=== PATIENT | male | born 1975 | race Caucasian/White ===

== ENCOUNTER 2018-10-06 13:38 | Emergency (ER) | payer MEDICAID, OTHER ==
[~2018-10-06] VITALS: Ht 180.3 cm; Wt 120.7 kg
[2018-10-06 15:10] VITALS: BP 132/72
== END 2018-10-06 16:25 | disposition home or self-care (01) ==
LOC: ER 13:43
DX: R21 Rash and other nonspecific skin eruption (principal)

== ENCOUNTER 2018-10-26 08:55 | Emergency (ER) | payer MEDICAID ==
[2018-10-26 09:43] VITALS: BP 152/99
== END 2018-10-26 09:52 | disposition home or self-care (01) ==
LOC: ER 08:55
DX: J02.9 Acute pharyngitis, unspecified (principal); I10 Essential (primary) hypertension; Z90.49 Acquired absence of other specified parts of digestive tract

== ENCOUNTER 2021-07-06 02:10 | Inpatient (IN) | payer MEDICARE, MEDICAID ==
[~2021-07-06] VITALS: Ht 180.3 cm; Wt 136.5 kg
[2021-07-06 02:37] LABS: Basophils # (auto) 0.1 10 ^3/uL (0-0.2); Basophils % (auto) 0.5 % (0.0-2.0); Eosinophils # (auto) 0.3 10 ^3/uL (0-0.8); Hematocrit 42.1 % (41.0-53.0); Hemoglobin 14.3 g/dL (13.5-17.5); Lymphocytes # (auto) 1.3 10 ^3/uL (0.4-5.4); Mean Corpuscular Hemoglobin 30.9 pg (28.0-32.0); Mean Corpuscular Hgb Conc. 33.9 g/dL (32.0-36.0); Mean Corpuscular Volume 91.1 fL (80.0-100.0); Monocytes # (auto) 0.9 10 ^3/uL (0-1.3); Monocytes % (auto) 6.3 % (0.0-12.0); Neutrophils # (auto) 12.3 10 ^3/uL (1.6-8.6); Neutrophils % (auto) 82.2 % (37.0-80.0); Red Blood Cells 4.62 10^6/uL (4.5-5.90); Red Cell Distribution Width 14.9 % (11.8-14.3); White Blood Cell 14.9 10^3/uL (4.4-10.8)
[2021-07-06 02:55] LABS: Albumin 2.8 g/dL (3.4-5.0); BUN/Creatinine Ratio 10.5; Calcium 8.1 mg/dL (8.5-10.1); Potassium 3.8 mmol/L (3.5-5.1)
[2021-07-06 02:56] LABS: Lactic Acid w/Reflex 2.9 mmol/L (0.4-2.0)
[2021-07-06 02:58] LABS: Bilirubin, Total 0.6 mg/dL (0.2-1.0); Total Protein 7.5 g/dL (6.4-8.2)
[2021-07-06] MEDS ORDERED: cefTRIAXone 1GM/50ML D5W 50 ML IV ONE (07:00)
[2021-07-06] MEDS ORDERED: CLINDAMYCIN 900MG IV 50 ML IV ONE (07:00)
[2021-07-06] MEDS ORDERED: methylPREDNISolone SOD SUCC 125 MG/2 ML VL IV ONE (07:00)
[2021-07-06] MEDS ORDERED: diphenhdrAMINE HCL 50 MG/1 ML VL ONE (10:21)
[2021-07-06] MEDS ORDERED: LORazepam 2MG/ML-1ML VIAL IV ONE (10:45)
[2021-07-06] MEDS ORDERED: NITROGLYCERIN 0.4 MG SL TAB SL PRN ×2 (13:45→16:00)
[2021-07-06] MEDS ORDERED: MORPHINE SULFATE INJECTION 2 MG/ML SYRG IV PRN ×2 (13:45→16:00)
[2021-07-06] MEDS ORDERED: DOXYCYCLINE 100MG/250ML 250 ML IV ONE (15:45)
[2021-07-06] MEDS ORDERED: ATORVASTATIN 20 MG TAB PO ONE (15:45)
[2021-07-06] MEDS ORDERED: LABETALOL HCL 5 MG/ML 4ML SYRINGE IV PRN (15:45)
[2021-07-06] MEDS ORDERED: VITAMINS A & D (TOPICAL) OINT 5GM TOP ONE (15:45)
[2021-07-06] MEDS: SODIUM CHLORIDE 0.9% 1,000 ML IV SCH (16:49)
[2021-07-06] MEDS: DOXYCYCLINE 100MG/250ML 250 ML IV SCH (16:49)
[2021-07-06] MEDS ORDERED: IPRATROPIUM BROM 0.5 MG/2.5ML INH SOL NEB PRN (18:00)
[2021-07-06] MEDS ORDERED: IPRATROPIUM BROM 0.5 MG/2.5ML INH SOL NEB SCH (18:00)
[2021-07-06 20:45] VITALS: BP 118/81
[2021-07-06] MEDS ORDERED: ATENOLOL 25 MG TAB PO SCH (22:00)
[2021-07-06 22:15] VITALS: BP 123/71
[2021-07-06] MEDS: HYDROGEL 60 GRAM GEL TOP SCH (22:30)
[2021-07-06] MEDS: ATORVASTATIN 20 MG TAB PO SCH (22:30)
[2021-07-06] MEDS: methylPREDNISolone SOD SUCC 40 MG/ML VL IV SCH (22:30)
[2021-07-06 23:19] LABS: Urine Bacteria NONE SEEN /hpf (None Seen); Urine Blood Negative /uL (Negative); Urine Hyaline Cast FEW /lpf (0 - 2); Urine Specific Gravity 1.028 (1.001-1.035); Urine WBC 1 /hpf (0 - 3)
[2021-07-06 23:36] LABS: Amphetamine Screen, Urine POSITIVE (NEGATIVE); Barbiturate Scree,Urine NEGATIVE (NEGATIVE); Benzodiazephine Screen, Urine POSITIVE (NEGATIVE); Cannabinoid Screen, Urine NEGATIVE (NEGATIVE); Cocaine Screen, Urine NEGATIVE (NEGATIVE); Phencyclidine Screen, Urine NEGATIVE (NEGATIVE)
[2021-07-06 23:42] LABS: Opiate Scree,Urine NEGATIVE (NEGATIVE)
[2021-07-06 23:54] LABS: INR 1.04 (0.9-1.15); Magnesium 2.4 mg/dL (1.6-2.6); Partial Thromboplastin Time 26.4 sec (23.6-33.0)
[2021-07-07 00:03] LABS: CRP High Sensitivity 9.08 mg/dL (< 0.3)
[2021-07-07] MEDS: DOXYCYCLINE 100MG/250ML 250 ML IV SCH (04:15)
[2021-07-07 05:00] VITALS: BP 153/84
[2021-07-07] MEDS: SODIUM CHLORIDE 0.9% 1,000 ML IV SCH (05:20)
[2021-07-07] MEDS: methylPREDNISolone SOD SUCC 40 MG/ML VL IV SCH ×2 (06:15→14:00)
[2021-07-07 09:00] VITALS: BP 143/69
[2021-07-07] MEDS ORDERED: ENOXAPARIN SOD 40 MG/0.4 ML SYRINGE SC SCH (10:00)
[2021-07-07] MEDS ORDERED: LABETALOL HCL 5 MG/ML 4ML SYRINGE IV PRN (10:15)
[2021-07-07] MEDS ORDERED: FUROSEMIDE 20 MG TAB PO ONE (10:30)
[2021-07-07] MEDS ORDERED: POTASSIUM CHL 10 Meq TABLET PO ONE (10:30)
[2021-07-07] MEDS: ASPirin 81 mg TAB PO SCH (10:49)
[2021-07-07] MEDS: BENAZEPRIL HCL 10 MG TAB PO SCH (10:50)
[2021-07-07] MEDS: HYDROGEL 60 GRAM GEL TOP SCH (10:50)
[2021-07-07] MEDS: cefTRIAXone 1GM/50ML D5W 50 ML IV SCH (10:51)
[2021-07-07] MEDS: CLINDAMYCIN 600MG IV 50 ML IV SCH (14:00)
[2021-07-07] MEDS ORDERED: VITAMINS A & D (TOPICAL) OINT 5GM TOP PRN (15:45)
[2021-07-07] MEDS: LORazepam 2MG/ML-1ML VIAL IV PRN (15:54)
[2021-07-07 17:14] VITALS: BP 141/87
[2021-07-07 22:00] VITALS: BP 130/75
[2021-07-08] MEDS: methylPREDNISolone SOD SUCC 40 MG/ML VL IV SCH ×4 (00:11→21:40)
[2021-07-08] MEDS: ATORVASTATIN 20 MG TAB PO SCH ×2 (00:11→21:41)
[2021-07-08] MEDS: HYDROGEL 60 GRAM GEL TOP SCH ×3 (00:11→22:00)
[2021-07-08] MEDS: CLINDAMYCIN 600MG IV 50 ML IV SCH ×4 (00:11→21:40)
[2021-07-08] MEDS: LORazepam 2MG/ML-1ML VIAL IV PRN ×3 (00:12→21:55)
[2021-07-08 05:00] VITALS: BP 130/85
[2021-07-08 07:02] LABS: Basophils # (auto) 0 10 ^3/uL (0-0.2); Basophils % (auto) 0.2 % (0.0-2.0); Eosinophils # (auto) 0 10 ^3/uL (0-0.8); Hematocrit 40.3 % (41.0-53.0); Hemoglobin 13.7 g/dL (13.5-17.5); Lymphocytes # (auto) 1.3 10 ^3/uL (0.4-5.4); Lymphocytes % (auto) 5.9 % (10.0-50.0); Mean Corpuscular Hgb Conc. 33.9 g/dL (32.0-36.0); Mean Corpuscular Volume 91.5 fL (80.0-100.0); Monocytes # (auto) 1.2 10 ^3/uL (0-1.3); Monocytes % (auto) 5.6 % (0.0-12.0); Neutrophils # (auto) 19.1 10 ^3/uL (1.6-8.6); Neutrophils % (auto) 88.3 % (37.0-80.0); Red Blood Cells 4.41 10^6/uL (4.5-5.90); Red Cell Distribution Width 15.1 % (11.8-14.3); White Blood Cell 21.6 10^3/uL (4.4-10.8)
[2021-07-08 07:23] LABS: Albumin 2.6 g/dL (3.4-5.0); Calcium 8.6 mg/dL (8.5-10.1); Potassium 4.2 mmol/L (3.5-5.1)
[2021-07-08 07:25] LABS: BUN/Creatinine Ratio 21.8; Bilirubin, Total 0.2 mg/dL (0.2-1.0); Total Protein 7.2 g/dL (6.4-8.2)
[2021-07-08 09:09] VITALS: BP 133/89
[2021-07-08] MEDS: cefTRIAXone 1GM/50ML D5W 50 ML IV SCH (09:53)
[2021-07-08] MEDS: FUROSEMIDE 20 MG TAB PO SCH (09:54)
[2021-07-08] MEDS: POTASSIUM CHL 10 Meq TABLET PO SCH (09:54)
[2021-07-08] MEDS: ASPirin 81 mg TAB PO SCH (09:54)
[2021-07-08] MEDS: BENAZEPRIL HCL 10 MG TAB PO SCH (09:55)
[2021-07-08 13:00] VITALS: BP 141/93
[2021-07-08 17:16] VITALS: BP 128/111
[2021-07-08] MEDS: FAMOTIDINE 20 MG TAB PO SCH (21:41)
[2021-07-08 22:00] VITALS: BP 157/108
[2021-07-09 05:00] VITALS: BP 129/78
[2021-07-09 05:37] LABS: Basophils # (auto) 0 10 ^3/uL (0-0.2); Basophils % (auto) 0.2 % (0.0-2.0); Eosinophils # (auto) 0 10 ^3/uL (0-0.8); Hematocrit 40.9 % (41.0-53.0); Hemoglobin 13.7 g/dL (13.5-17.5); Lymphocytes # (auto) 1.3 10 ^3/uL (0.4-5.4); Lymphocytes % (auto) 7.7 % (10.0-50.0); Mean Corpuscular Hemoglobin 30.8 pg (28.0-32.0); Mean Corpuscular Hgb Conc. 33.5 g/dL (32.0-36.0); Mean Corpuscular Volume 91.9 fL (80.0-100.0); Monocytes # (auto) 0.9 10 ^3/uL (0-1.3); Neutrophils # (auto) 15.1 10 ^3/uL (1.6-8.6); Neutrophils % (auto) 87.1 % (37.0-80.0); Red Blood Cells 4.45 10^6/uL (4.5-5.90); Red Cell Distribution Width 14.9 % (11.8-14.3); White Blood Cell 17.3 10^3/uL (4.4-10.8)
[2021-07-09] MEDS: methylPREDNISolone SOD SUCC 40 MG/ML VL IV SCH ×2 (05:37→21:29)
[2021-07-09] MEDS: CLINDAMYCIN 600MG IV 50 ML IV SCH ×3 (05:37→21:29)
[2021-07-09 06:47] LABS: BUN/Creatinine Ratio 20.6; Calcium 8.6 mg/dL (8.5-10.1); Potassium 4.1 mmol/L (3.5-5.1)
[2021-07-09 09:00] VITALS: BP 136/68
[2021-07-09] MEDS: ASPirin 81 mg TAB PO SCH (09:31)
[2021-07-09] MEDS: cefTRIAXone 1GM/50ML D5W 50 ML IV SCH (09:31)
[2021-07-09] MEDS: POTASSIUM CHL 10 Meq TABLET PO SCH (09:32)
[2021-07-09] MEDS: FUROSEMIDE 20 MG TAB PO SCH (09:32)
[2021-07-09] MEDS: HYDROGEL 60 GRAM GEL TOP SCH ×2 (09:33→21:35)
[2021-07-09] MEDS: BENAZEPRIL HCL 10 MG TAB PO SCH (09:33)
[2021-07-09] MEDS: FAMOTIDINE 20 MG TAB PO SCH ×2 (09:33→21:30)
[2021-07-09 13:00] VITALS: BP 141/82
[2021-07-09 13:56] LABS: Hepatitis A Ab IgM Negative
[2021-07-09 13:57] LABS: Hepatitis B Core IgM Negative; Hepatitis B Surface Antigen Negative (Negative); Hepatitis C Antibody Negative (Negative)
[2021-07-09 17:00] VITALS: BP 145/112
[2021-07-09] MEDS: LORazepam 2MG/ML-1ML VIAL IV PRN (19:53)
[2021-07-09] MEDS: ATORVASTATIN 20 MG TAB PO SCH (21:29)
[2021-07-09 22:00] VITALS: BP_SYST 150; BP_SYST 154; BP_DIAS 90; BP_DIAS 98
[2021-07-10] MEDS: LORazepam 2MG/ML-1ML VIAL IV PRN ×2 (04:00→21:29)
[2021-07-10 05:00] VITALS: BP 134/111
[2021-07-10] MEDS: CLINDAMYCIN 600MG IV 50 ML IV SCH ×3 (05:25→21:06)
[2021-07-10 06:11] LABS: Basophils # (auto) 0 10 ^3/uL (0-0.2); Basophils % (auto) 0.2 % (0.0-2.0); Eosinophils # (auto) 0 10 ^3/uL (0-0.8); Hematocrit 44.9 % (41.0-53.0); Hemoglobin 15.7 g/dL (13.5-17.5); Lymphocytes # (auto) 1.4 10 ^3/uL (0.4-5.4); Mean Corpuscular Hemoglobin 31.6 pg (28.0-32.0); Mean Corpuscular Hgb Conc. 34.9 g/dL (32.0-36.0); Mean Corpuscular Volume 90.5 fL (80.0-100.0); Monocytes # (auto) 0.7 10 ^3/uL (0-1.3); Monocytes % (auto) 4.5 % (0.0-12.0); Neutrophils # (auto) 13.7 10 ^3/uL (1.6-8.6); Neutrophils % (auto) 86.3 % (37.0-80.0); Nucleated Red Blood Cells % 0.1 %; Red Blood Cells 4.97 10^6/uL (4.5-5.90); Red Cell Distribution Width 15.2 % (11.8-14.3); White Blood Cell 15.9 10^3/uL (4.4-10.8)
[2021-07-10 06:27] LABS: INR 1.16 (0.9-1.15); Partial Thromboplastin Time 25.7 sec (23.6-33.0)
[2021-07-10 09:00] VITALS: BP 132/115
[2021-07-10] MEDS: cefTRIAXone 1GM/50ML D5W 50 ML IV SCH (09:58)
[2021-07-10] MEDS: methylPREDNISolone SOD SUCC 40 MG/ML VL IV SCH (09:58)
[2021-07-10] MEDS: ASPirin 81 mg TAB PO SCH (09:58)
[2021-07-10] MEDS: BENAZEPRIL HCL 10 MG TAB PO SCH (09:59)
[2021-07-10] MEDS: HYDROGEL 60 GRAM GEL TOP SCH ×2 (09:59→21:06)
[2021-07-10] MEDS: POTASSIUM CHL 10 Meq TABLET PO SCH (09:59)
[2021-07-10] MEDS: FAMOTIDINE 20 MG TAB PO SCH ×2 (09:59→21:06)
[2021-07-10] MEDS: FUROSEMIDE 20 MG TAB PO SCH (09:59)
[2021-07-10 13:00] VITALS: BP 130/68
[2021-07-10 17:00] VITALS: BP 153/88
[2021-07-10] MEDS: ATORVASTATIN 20 MG TAB PO SCH (21:06)
[2021-07-10 22:00] VITALS: BP 144/89
[2021-07-11] MEDS: CLINDAMYCIN 600MG IV 50 ML IV SCH (06:17)
[2021-07-11 08:00] VITALS: BP 123/85
[2021-07-11] MEDS ORDERED: diphenhdrAMINE HCL 50 MG/1 ML VL IV ONE (08:30)
[2021-07-11] MEDS ORDERED: fentaNYL CITRATE 100 MCG/2 ML VL IV ONE (08:30)
[2021-07-11] MEDS ORDERED: LIDOCAINE VISCOUS 2% 15ML UD MT PRN (08:30)
[2021-07-11] MEDS ORDERED: MIDAZOLAM HCL 2MG/2ML 2ml VIAL (1mg/ml) IV ONE (08:30)
[2021-07-11] MEDS ORDERED: MIDAZOLAM HCL 2MG/2ML 2ml VIAL (1mg/ml) ONE (09:36)
[2021-07-11] MEDS: ASPirin 81 mg TAB PO SCH (11:20)
[2021-07-11] MEDS: cefTRIAXone 1GM/50ML D5W 50 ML IV SCH (11:20)
[2021-07-11] MEDS: POTASSIUM CHL 10 Meq TABLET PO SCH (11:21)
[2021-07-11] MEDS: FUROSEMIDE 20 MG TAB PO SCH (11:21)
[2021-07-11] MEDS: predniSONE 20 MG TAB PO SCH (11:21)
[2021-07-11] MEDS: FAMOTIDINE 20 MG TAB PO SCH ×2 (11:22→21:33)
[2021-07-11] MEDS: BENAZEPRIL HCL 10 MG TAB PO SCH (11:22)
[2021-07-11] MEDS: HYDROGEL 60 GRAM GEL TOP SCH ×3 (11:23→22:00)
[2021-07-11 12:00] VITALS: BP 136/98
[2021-07-11] MEDS: CLINDAMYCIN HCL 150 MG CAP PO SCH ×2 (14:00→21:33)
[2021-07-11 16:00] VITALS: BP 138/86
[2021-07-11] MEDS: LORazepam 2MG/ML-1ML VIAL IV PRN (18:12)
[2021-07-11 20:00] VITALS: BP 115/70
[2021-07-11] MEDS: ATORVASTATIN 20 MG TAB PO SCH (21:33)
[2021-07-11 22:04] VITALS: BP 115/70
[2021-07-12] MEDS: LORazepam 2MG/ML-1ML VIAL IV PRN (04:00)
[2021-07-12 05:05] VITALS: BP 107/67
[2021-07-12] MEDS: CLINDAMYCIN HCL 150 MG CAP PO SCH (05:20)
[2021-07-12 08:00] VITALS: BP 137/79
[2021-07-12] MEDS: predniSONE 20 MG TAB PO SCH (09:53)
[2021-07-12] MEDS: POTASSIUM CHL 10 Meq TABLET PO SCH (09:53)
[2021-07-12] MEDS: ASPirin 81 mg TAB PO SCH (09:53)
[2021-07-12] MEDS: cefTRIAXone 1GM/50ML D5W 50 ML IV SCH (09:53)
[2021-07-12] MEDS: FAMOTIDINE 20 MG TAB PO SCH (09:54)
[2021-07-12] MEDS: FUROSEMIDE 20 MG TAB PO SCH (09:54)
[2021-07-12] MEDS: BENAZEPRIL HCL 10 MG TAB PO SCH (09:54)
[2021-07-12 11:07] LABS: Basophils # (auto) 0 10 ^3/uL (0-0.2); Basophils % (auto) 0.3 % (0.0-2.0); Eosinophils # (auto) 0.1 10 ^3/uL (0-0.8); Eosinophils % (auto) 0.6 % (0.0-7.0); Hemoglobin 16.8 g/dL (13.5-17.5); Lymphocytes # (auto) 2.3 10 ^3/uL (0.4-5.4); Lymphocytes % (auto) 12.6 % (10.0-50.0); Mean Corpuscular Hemoglobin 31.4 pg (28.0-32.0); Mean Corpuscular Hgb Conc. 34.3 g/dL (32.0-36.0); Mean Corpuscular Volume 91.6 fL (80.0-100.0); Monocytes # (auto) 1.6 10 ^3/uL (0-1.3); Monocytes % (auto) 8.7 % (0.0-12.0); Neutrophils # (auto) 14.4 10 ^3/uL (1.6-8.6); Neutrophils % (auto) 77.8 % (37.0-80.0); Nucleated Red Blood Cells % 0.1 %; Red Blood Cells 5.35 10^6/uL (4.5-5.90); Red Cell Distribution Width 15.3 % (11.8-14.3); White Blood Cell 18.6 10^3/uL (4.4-10.8)
[2021-07-12] MEDS: HYDROGEL 60 GRAM GEL TOP SCH (12:37)
[2021-07-12 12:53] VITALS: BP 137/79
== END 2021-07-12 15:15 | disposition home or self-care (01) | DRG 606 ==
LOC: ER 02:10 → TELE 13:34 → TELE-CENTR 22:21
PROVIDERS: ADMIT Hospitalist; ATTEND Internal Medicine
PROC: 05HF33Z Insertion of Infusion Device into Left Cephalic Vein, Percutaneous Approach (ICD-10-PCS; principal; 2021-07-06)
PROC: B54NZZA Ultrasonography of Left Upper Extremity Veins, Guidance (ICD-10-PCS; 2021-07-06)
PROC: B24BZZ4 Ultrasonography of Heart with Aorta, Transesophageal (ICD-10-PCS; 2021-07-11)
DX: L95.8 Other vasculitis limited to the skin (principal); I50.43 Acute on chronic combined systolic (congestive) and diastolic (congestive) heart failure; L03.116 Cellulitis of left lower limb; I16.1 Hypertensive emergency; N17.9 Acute kidney failure, unspecified; Z68.42 Body mass index [BMI] 45.0-49.9, adult; I96 Gangrene, not elsewhere classified; L03.115 Cellulitis of right lower limb; E78.5 Hyperlipidemia, unspecified; F15.10 Other stimulant abuse, uncomplicated; F14.10 Cocaine abuse, uncomplicated; F10.10 Alcohol abuse, uncomplicated; E11.9 Type 2 diabetes mellitus without complications; G47.30 Sleep apnea, unspecified; I11.0 Hypertensive heart disease with heart failure; E66.01 Morbid (severe) obesity due to excess calories; Z20.822 Contact with and (suspected) exposure to COVID-19; F19.10 Other psychoactive substance abuse, uncomplicated; T38.0X5A Adverse effect of glucocorticoids and synthetic analogues, initial encounter; Y92.89 Other specified places as the place of occurrence of the external cause; Z79.899 Other long term (current) drug therapy; Z79.82 Long term (current) use of aspirin; Z86.79 Personal history of other diseases of the circulatory system; Z91.14 Patient's other noncompliance with medication regimen; Z95.2 Presence of prosthetic heart valve
CPT/HCPCS: 36415; 71045; 80048; 80053; 80074; 80307; 81001; 83516; 83520; 83605; 83735; 84311; 84443; 84484; 85025; 85610; 85613; 85652; 85670; 85705; 85730; 85732; 86141; 86147; 86225; 86235; 86256; 86703; 86850; 86900; 86901; 87040; 87205; 87426; 93005; 93306; 93312; 93970; 96365; 96366; 96367; 96368; 96375; 99152; G0378; J0696; J2250; J3490

== ENCOUNTER 2021-07-21 14:57 | Emergency (ER) | payer MEDICARE, MEDICAID ==
[~2021-07-21] VITALS: Ht 180.3 cm; Wt 131.5 kg
[2021-07-21 14:58] VITALS: BP 153/93
[2021-07-21] MEDS ORDERED: IBUPROFEN 800 MG TAB PO ONE (16:30)
== END 2021-07-21 16:41 | disposition home or self-care (01) ==
LOC: ER 14:58
DX: S52.201A Unspecified fracture of shaft of right ulna, initial encounter for closed fracture (principal); I12.9 Hypertensive chronic kidney disease with stage 1 through stage 4 chronic kidney disease, or unspecified chronic kidney disease; N18.9 Chronic kidney disease, unspecified; Z90.49 Acquired absence of other specified parts of digestive tract; W01.0XXA Fall on same level from slipping, tripping and stumbling without subsequent striking against object, initial encounter; Y93.89 Activity, other specified; Y92.89 Other specified places as the place of occurrence of the external cause; Y99.8 Other external cause status
CPT/HCPCS: 73090